=== PATIENT | male | born 1980 | race Caucasian/White ===

== ENCOUNTER 2021-01-15 17:58 | Emergency (ER) | payer BC, SELFPAY ==
--- NOTE | ~2021-01-15 | CT_ITS ---
EXAMINATION: CT ABDOMEN AND PELVIS WITHOUT CONTRAST CLINICAL INFORMATION: Rule out renal calculi COMPARISON: None TECHNIQUE: Multidetector volumetric imaging was performed from the superior aspect of the liver through the pubic symphysis. Sagittal and coronal reformatted images were obtained on the technologist's workstation. This CT examination was performed using dose optimization techniques as appropriate, variously including the following: *Automated exposure control *Adjustment of mA and/or kV according to patient size (this includes techniques or standardized protocols for targeted exams where dose is matched to indication/reason for exam; i.e. extremities or head) *Use of iterative reconstruction technique DLP: 459 mGy-cm FINDINGS: Visualized lung bases are well aerated. The liver demonstrates normal size, contour and attenuation. A few subcentimeter hepatic hypodensities are too small to accurately characterize. The gallbladder is normal in appearance. The pancreas, spleen and adrenal glands are unremarkable. Symmetrically sized kidneys. There is mild right-sided hydroureteronephrosis secondary to a 5 mm calculus within the proximal right ureter. No other renal calculi are present within either kidney. The stomach is relatively decompressed. Normal caliber loops of small and large bowel. Mild stool burden throughout the colon. The bladder is normal in appearance. Coarse calcifications are present within a normal-sized prostate gland. No gross free pelvic fluid. No inguinal lymphadenopathy. No acute osseous abnormality. Bilateral L5 pars defects. CT/CT abdomen pelvis wo con IMPRESSION: Mild right-sided hydroureteronephrosis secondary to a 5 mm calculus within the proximal right ureter.
[2021-01-15 18:55] VITALS: BP 141/87; PULSE 65; RESP 18; TEMP 36.6; O2SAT 99; BMI 24.3
[2021-01-15 22:11] LABS: Hematocrit 44.7 % (42-52); Hemoglobin 15.2 g/dl (14.0-18.0); Mean Corpuscular Hemoglobin 29.4 pg (27.0-33.0); Mean Corpuscular Volume 86.5 fL (80-98); Mean Platelet Volume 10.9 fL (9.4-12.4); Platelet Count 239 X10*3/uL (160-400); Red Blood Count 5.17 X10*6/uL (4.60-5.80); Red Cell Distribution Width 12.2 % (11.0-16.0); White Blood Count 10.4 X10*3/uL (4.8-10.8)
[2021-01-15 22:31] LABS: Alanine Aminotransferase 11 U/L (0-40); Albumin Level 4.9 g/dL (3.5-5.0); Alkaline Phosphatase 73 U/L (39-117); Anion Gap 12 (12-20); Aspartate Amino Transferase 15 U/L (5-37); Blood Urea Nitrogen 9 mg/dL (9-16); Calcium 9.6 mg/dL (8.4-10.2); Carbon Dioxide 30 mmol/L (22-29); Chloride 100 mmol/L (96-108); Creatinine Clr Calc Pharmacy 101.1; Estimated Glomerular Filt Rate > 60; Glucose Random 97 mg/dL (60-115); Potassium 3.6 mmol/L (3.3-5.1); Sodium 138 mmol/L (135-145); Total Protein 8.1 g/dL (6.5-8.0)
[2021-01-15] MEDS: Ketorolac Tromethamine 30 MG/ML VIAL IVPUSH (22:37)
[2021-01-15] MEDS: 0.9 % Sodium Chloride 1,000 ML 999 ML IV (22:38)
[2021-01-15 22:53] LABS: Glucose Urine UA NEG (NEG); Leukocyte Esterase Urine NEG (NEG); Nitrite Urine NEG (NEG); Urine Blood 3+ (NEG); Urine Ketones 15 MG/DL (NEG); Urine Protein NEG (NEG-TRACE)
[2021-01-15 22:54] LABS: Appearance Urine HAZY; Color Urine DARK YELLOW
--- NOTE | 2021-01-15 22:59 | ED_ITS ---
HPI - General Adult General Chief complaint: Back Pain/Injury Stated complaint: flank pain Time Seen by Provider: 01/15/21 22:12 Source: patient Mode of arrival: ambulatory Limitations: no limitations History of Present Illness HPI narrative: Patient presents to the ED for flank pain for the past 2 days and blood in urine. Patient states history of kidney stones 12 years ago. Patient denies any abdominal pain, fever, or chills. Related Data Previous Rx's Medication Instructions Recorded naproxen 500 mg PO BID PRN #20 tab 01/15/21 oxycodone-acetaminophen [Percocet] 1 tab PO TID PRN 3 Days #9 tab 01/15/21 prednisone 40 mg PO DAILY #10 tab 01/15/21 tamsulosin [Flomax] 0.4 mg PO DAILY #10 cap 01/15/21 Allergies Allergy/AdvReac Type Severity Reaction Status Date / Time No Known Allergies Allergy Verified 01/15/21 18:54 Review of Systems Review of Systems: Yes all other systems are reviewed and are negative Constitutional: Constitutional: Reports as per HPI and Reports no additional constitutional complaints Eyes: Eyes: Reports as per HPI and Reports no additional eye complaints ENT: Reports system reviewed and no additional complaints, except as documented and Reports as per HPI Cardiovascular: Cardiovascular: Reports as per HPI and Reports no additional cardiovascular complaints Respiratory: Respiratory: Reports as per HPI and Reports no additional respiratory complaints Gastrointestinal: Gastrointestinal: Reports as per HPI, Reports no additional gastrointestinal complaints, Denies abdominal pain, Denies early satiety, Denies dyspepsia, Denies heartburn, Denies nausea, Denies vomiting and Denies hematemesis Genitourinary: Genitourinary: Reports no additional male genitourinary complaints and Reports as per HPI Musculoskeletal: Musculoskeletal: Reports no additional musculoskeletal complaints and Reports as per HPI Comments: Right flank pain Neurologic: Reports system reviewed and no additional complaints, except as documented and Reports as per HPI Psychiatric: Psychiatric: Reports no additional psychiatric complaints and Reports as per HPI PMF Social History Social History Smoking Status: Never smoker Use of substances other than those prescribed or required for medical reasons: No Advance Directives: No Advance Directives Information Provided: Yes Physical Exam Vital Signs: Vital Signs: Last Vital Signs Temp 97.9 F 01/15/21 18:55 Pulse 66 01/15/21 23:25 Resp 18 04/05/21 23:25 BP 141/87 H 01/15/21 23:25 Pulse Ox 99 01/15/21 23:25 Body Mass Index 24.3 Const: General: cooperative, healthy appearing, comfortable, no acute distress, well developed, alert, awake and Physically active Orientation/consciousness: patient oriented x3 HENMT: Head: Yes normal to inspection, Yes No palpable skull fracture present, Yes normocephalic and Yes atraumatic Eyes: General: appearance normal, both eyes and all related structures Neck: Neck: Yes normal visual inspection, Yes full ROM, Yes no lymphaden opathy, Yes no meningeal signs, Yes trachea midline, Yes supple and No tender Chest: Chest palpation & inspection: normal inspection of the chest and normal palpation of entire chest wall Resp: Effort & Inspection: normal respiratory effort and able to speak in complete sentences Auscultation: clear to auscultation bilaterally Cardio: Jugular venous distension: no JVD Heart sounds: S1 normal heart sound present and S2 normal heart sound present GI: Inspection: Yes normal to inspection and No abdominal wall ecchymosis Palpation (GI): Soft to palpation, nontender, no guarding and not rigid : General: Yes CVA tenderness (mild right) Back/Spine/Pelvis: Back: CVA tenderness (mild right) Skin: General skin exam: no rashes or lesions noted and elasticity normal Neuro: General: patient oriented x3, gait normal, no meningeal signs and CN's II-XI intact bilaterally Cranial nerves: Yes CN's II-XII intact bilaterally Extrem: General: Yes normal to inspection and Yes full ROM Psych: Appearance: grossly normal, well kempt and not disheveled Course Course Course Narrative: Patient will have labs, fluids, and Zofran. Patient will be sent for abdominal CT scan to evaluate for stones. Reevaluation(s) Reevaluation #1: Patient states feeling better after receiving Toradol for pain. Patient's kidney functions are normal. Urine negative for UTI. CT scan shows 5 mm stone. Patient with her with prednisone, Flomax, and pain meds told to follow-up with urology. Patient did not have any nausea or vomiting during ED visit Medical Decision Making MDM Narrative Medical decision making narrative: Kidney stone. Lab Data Result diagrams: 01/15/21 22:05 01/15/21 22:05 Labs: Lab Results 01/15/21 01/15/2101/15/21 Range/Units 22:05 22:05 22:31 WBC 10.4 (4.8-10.8) X10*3/uL RBC 5.17 (4.60-5.80) X10*6/uL Hgb 15.2 (14.0-18.0) g/dl Hct 44.7 (42-52) % MCV 86.5 (80-98) fL MCH 29.4 (27.0-33.0) pg MCHC 34.0 (31.0-36.0) g/dl RDW 12.2 (11.0-16.0) % Plt Count 239 (160-400) X10*3/uL MPV 10.9 (9.4-12.4) fL Absolute Nucleated RBC 0.000 (0.0-0.012) X10*3/uL Nucleated RBC % (auto) 0.0 (0.0-0.2) /100WBC Sodium 138 (135-145) mmol/L Potassium 3.6 (3.3-5.1) mmol/L Chloride 100 (96-108) mmol/L Carbon Dioxide 30 H (22-29) mmol/L Anion Gap 12 (12-20) BUN 9 (9-16) mg/dL Creatinine 0.99 (0.5-1.4) mg/dL Estim Creat Clear Calc 101.1 Estimated GFR > 60 Random Glucose 97 (60-115) mg/dL Calcium 9.6 (8.4-10.2) mg/dL Total Bilirubin 1.0 (0.0-1.0) mg/dL AST 15 (5-37) U/L ALT 11 (0-40) U/L Alkaline Phosphatase 73 (39-117) U/L Total Protein 8.1 H (6.5-8.0) g/dL Albumin 4.9 (3.5-5.0) g/dL Urine Color DARK YELLOW Urine Appearance HAZY Urine pH 7.0 (5.0-8.0) Ur Specific [place] 1.020 (1.005-1.025) Urine Protein NEG (NEG-TRACE) MG/DL Urine Glucose (UA) NEG (NEG) MG/DL Urine Ketones 15 (NEG) MG/DL Urine Blood 3+ H (NEG) Urine Nitrite NEG (NEG) Ur Leukocyte Esterase NEG (NEG) Urine RBC 15-29 H (0) /HPF Urine WBC 0-2 (0-4) /HPF Ur Squamous Epith Cells NONE /LPF Amorphous Sediment 2+ /LPF Urine Bacteria NONE /LPF Urine Mucus 2+ /LPF Discharge Plan Discharge Clinical Impression: Calculi, ureter Patient Disposition: Home, Self-Care Instructions: Ureteral Stones (ED) Additional Instructions: Return to the ED for worsening flank pain, abdominal pain, nausea, vomiting, fe shabnam, chills, inability tolerate solid food/liquid, gross hematuria, or any other concerning symptoms. Prescriptions: New oxycodone-acetaminophen [Percocet] 5-325 mg tablet 1 tab PO TID PRN (Reason: pain (scale score 7-10)) 3 Days Qty: 9 RF: 0 tamsulosin [Flomax] 0.4 mg capsule 0.4 mg PO DAILY Qty: 10 RF: 0 prednisone 20 mg tablet 40 mg PO DAILY Qty: 10 RF: 0 naproxen 500 mg tablet 500 mg PO BID PRN (Reason: pain) Qty: 20 RF: 0 Referrals: Sherif Barahona MD [Physician] - 2 days (Ureter stone with mild hydronephrosis 5 mm) Stand Alone Forms: Work/School Release Interventions: ED Discharge Assessment Last Done: 01/16/21 00:11 Discharge Date/Time: 01/16/21 00:12 Print Language: Armenian
[2021-01-15 23:19] LABS: Amorphous Sediment Urine 2+ /LPF; Mucus Urine 2+ /LPF; WBC Urine 0-2 /HPF (0-4)
[2021-01-15 23:25] VITALS: BP 141/87; PULSE 66; RESP 18; O2SAT 99
[2021-01-15] MEDS: Tamsulosin HCL 0.4 MG CAPSULE PO (23:35)
== END 2021-01-16 00:12 | disposition home or self-care (01) ==
PROVIDERS: Physician Assistant; Emergency Provider Emergency Medicine Emergency Medical Services
DX: N20.1 Calculus of ureter (principal); R10.9 Unspecified abdominal pain; Z79.899 Other long term (current) drug therapy
CPT/HCPCS: 36415; 74176; 80053; 81001; 85027; 96365; 96375; 99284; J1885

== ENCOUNTER → 2021-01-24 14:16 | Outpatient (BNVA) | payer BC, SELFPAY | PROVIDERS: PCP Internal Medicine; Visit Provider Urology ==

== ENCOUNTER → 2021-03-13 08:51 | Outpatient (BNVA) | payer BC, SELFPAY | PROVIDERS: PCP Internal Medicine; Visit Provider Urology ==

== ENCOUNTER 2021-04-02 14:59 | Day surgery (SDC) | payer BC, SELFPAY ==
[2021-03-27 11:34] VITALS: BMI 24.3
--- NOTE | 2021-03-29 14:19 | HO.ANESPROP2 ---
Documented by User: Arianne Diaz 03/29/21 14:20 HPI - Anesthesia Eval Consult details Narrative: 40yo M for Right Cystoscopy, Ureteroroscopy, Retro, Laser PMFSH Active Problems Active Problems: All Active Problems (Updated 01/24/21 @ 14:36 by Sherif Barahona MD) Nephrolithiasis (Acute) Past Medical History Medical History Nephrolithiasis Family History Family History Father Colon cancer Mother Kidney stone Surgical History Surgical History Hx of lithotripsy Social History Social History Advance Directives: No Advance Directives Information Provided: Yes Meds Allergies Allergy/AdvReac Type Severity Reaction Status Date / Time No Known Allergies Allergy Verified 03/13/21 08:51 Home Medications Medication Instructions Recorded Confirmed Last Taken Type tramadol 50 mg tablet 50 mg PO DAILY 01/24/21 Unknown History Exam Exam Date and Time: March 29, 2021 1419 Height,Weight and Vital Signs: Height 5 ft 9 in Weight 74.843 kg Pertinent Lab Results Pertinent Lab Results: Laboratory Tests 01/15/21 01/15/21 22:05 22:05 WBC 10.4 Hgb 15.2 Hct 44.7 Plt Count 239 Sodium 138 Potassium 3.6 Chloride 100 Carbon Dioxide 30 H BUN 9 Creatinine 0.99 Assessment and Plan Assessment Anesthesia Assessment: Chart Reviewed Documented by User: Rufina Levine 04/02/21 19:38 PMFSH Past Medical History Medical History Nephrolithiasis Family History Family History Father Colon cancer Mother Kidney stone Surgical History Surgical History Hx of lithotripsy Social History Social History Advance Directives: No Advance Directives Information Provided: Yes Meds Allergies Allergy/AdvReac Type Severity Reaction Status Date / Time No Known Allergies Allergy Verified 03/13/21 08:51 Home Medications Medication Instructions Recorded Confirmed Last Taken Type tramadol 50 mg tablet 50 mg PO DAILY 01/24/21 Unknown History Exam Airway Mallampati Class: II TM Dist: >3cm Neck ROM: Full
--- NOTE | ~2021-04-02 | FL_ITS ---
EXAMINATION: XR FLUOROSCOPY WITH IMAGES CLINICAL INFORMATION: Kidney stones. COMPARISON: None. TECHNIQUE: Fluoroscopy performed by Dr. Sherif Barahona. Fluoroscopy time: 120.1 second DOSE: 24.4 mGycm2 Images: 1 FL/FL guidance in OR FINDINGS/IMPRESSION: Single image reveals internal ureteral stent likely in the kidney pelvis. Fluoroscopy was provided to Dr. Jun Gorman during the procedure.
[2021-04-02 15:33] VITALS: BP 117/79; PULSE 72; RESP 20; TEMP 37.7; O2SAT 98
[2021-04-02] MEDS: levoFLOXacin 500 MG TABLET PO (15:45)
[2021-04-02] MEDS: Lactated Ringers 1,000 ML 100 ML IVCONT (15:45)
--- NOTE | 2021-04-02 19:29 | MHC.SHP ---
Pre-Procedural Eval Section A The patient is an INPATIENT: No Changes since office visit: No Cold of Flu in the past 2 weeks, No New Medical Problems, No Changes in Medication and No Patient answered all questions The History & Physical has been completed within 30 days and I have reviewed it.: Yes Section B Chief Complaint: calculus of kidney Allergies: Allergies Allergy/AdvReac Type Severity Reaction Status Date / Time No Known Allergies Allergy Verified 03/13/21 08:51 Plan Diagnosis/Plan: Unchanged (Right retrograde, ureteroscopy laser lithotripsy stent placement) I have reviewed the history and physical and performed a pertinent physical examination on my patient. No changes have occurred unless specified.
--- NOTE | 2021-04-02 20:04 | HO.ANESPROP2 ---
[facility] Active Problems Active Problems: All Active Problems (Updated 03/29/21 @ 14:19 by Arianne Diaz) Nephrolithiasis (Acute) Past Medical History Medical History Nephrolithiasis Family History Family History Father Colon cancer Mother Kidney stone Surgical History Surgical History Hx of lithotripsy Social History Social History Advance Directives: No Advance Directives Information Provided: Yes Meds Allergies Allergy/AdvReac Type Severity Reaction Status Date / Time No Known Allergies Allergy Verified 03/13/21 08:51 Active Medications: Current Medications Generic Name Dose Route Start Last Admin Trade Name Freq PRN Reason Stop Dose Admin Fentanyl 50 mcg 04/02/21 19:38 Fentanyl Citrate/Pf 100 Mcg/2 Ml Vial IVPUSH Q5M PRN Pain, Severe (Pain Scale 7-10) Lactated Ringer's 1,000 mls @ 100 mls/hr 04/02/21 15:45 04/02/21 15:45 Lr IVCONT 100 mls/hr .Q10H REMI Administration Ondansetron HCl 4 mg 04/02/21 19:38 Ondansetron Hcl 4 Mg/2 Ml Vial IVPUSH ONCE PRN Nausea and Vomiting Oxycodone HCl 10 mg 04/02/21 19:38 Oxycodone Hcl Immed Release 5 Mg Tablet PO ONCE PRN Pain, Severe (Pain Scale 7-10) Home Medications Medication Instructions Recorded Confirmed Last Taken Type tramadol 50 mg tablet 50 mg PO DAILY 01/24/21 Unknown History Exam Exam Date and Time: April 02, 20212003 Height,Weight and Vital Signs: Height 5 ft 9 in Weight 74.843 kg Last Vital Signs Temp 99.8 F 04/02/21 15:33 Pulse 72 04/02/21 15:33 Resp 20 04/02/21 15:33 BP 117/79 04/02/21 15:33 Pulse Ox 98 04/02/21 15:33 Airway Mallampati Class: II TM Dist: >3cm Neck ROM: Full
--- NOTE | 2021-04-02 20:36 | W.PM.OPN ---
Operative Note Operative Note Date of Service: 04/02/21 Narrative: PreOperative Diagnosis: Right distal ureteric stone Post Operative Diagnosis: Right distal ureteric stone Procedure: - right cystoscopy, retrograde - right dilatation of ureteric orifice under fluoroscopy - right ureteroscopy, laser lithotripsy - stent placement Surgeon: Dr Sherif Barahona Anesthesia: General Indications for procedure: [] Procedure: After informed consent was verified patient was brought to the operating placed in supine position. Anesthesia was administered per protocol. Patient was placed in modified dorsal lithotomy position and prepped and draped in a sterile fashion. Safety pause time-out and side of surgery confirmed. Antibiotics confirmed. Twenty-two [place]ian cystoscope was placed per urethra. Normal looking bladder. Right ureteric orifice cannulated and retrograde examination performed. Filling defects seen in the mid right ureter with mild hydroureteronephrosis. Sensor guidewire placed. Kula dilator used to dilate ureteric orifice under fluoroscopy. Initial placement flexible ureteral scope only because midportion looked too far away for rigid scope. We did encounter the stone however there was a tight turn in difficulty getting the angle with the flexible scope. The wire was placed back. The scope removed. A semi rigid scope was placed. Stone was encountered. Using a holmium laser fiber the stone was broken into small pieces. Because of the difficulty with maintaining a straight scope decision was made not to try to basket out the fragments but instead to leave a stent. The scope was removed. The cystoscope was back loaded through the wire and a 6 [place] by 24 cm double-J stent was placed without difficulty. The bladder was emptied. He tolerated the procedure well was extubated in operating room transferred in stable condition to the recovery area. Pathology: None Drains: 6 [place] by 24 cm stent
[2021-04-02 20:37] VITALS: BP 145/90; PULSE 73; RESP 16; TEMP 37.3; O2SAT 100
[2021-04-02 20:42] VITALS: BP 145/103; PULSE 66; RESP 16; O2SAT 98
[2021-04-02 20:47] VITALS: BP 141/89; PULSE 66; RESP 16; O2SAT 97
[2021-04-02] MEDS: Phenazopyridine HCL 100 MG TABLET PO (20:51)
[2021-04-02 20:52] VITALS: BP 143/93; PULSE 77; RESP 16; O2SAT 99
--- NOTE | 2021-04-02 21:01 | PC.NURSE ---
PATIENT CONVERSING. NO COMPLAINTS OF PAIN. REPORTS URGE TO VOID. OOB AMBULATING TO BATHROOM STEADY GAIT.
[2021-04-02 21:08] VITALS: BP 140/93; PULSE 70; RESP 16; TEMP 36.6; O2SAT 99
== END 2021-04-02 21:32 | disposition home or self-care (01) ==
PROVIDERS: Visit Provider Urology
PROC: (CPT 52356; principal; 2021-04-02 17:20)
DX: N20.1 Calculus of ureter (principal); Z87.442 Personal history of urinary calculi; Z79.899 Other long term (current) drug therapy; Z87.891 Personal history of nicotine dependence
CPT/HCPCS: 52356; C1769; C2617; J1100; J1885; J2250; J2405; J3010; Q9967

== ENCOUNTER → 2021-04-13 10:52 | Outpatient (BNVA) | payer BC, SELFPAY | PROVIDERS: Visit Provider Urology | DX: N20.0 Calculus of kidney (principal) | CPT/HCPCS: 52310 ==

== ENCOUNTER 2021-04-27 11:26 | Outpatient (REF) | payer BC, SELFPAY ==
--- NOTE | ~2021-04-27 | US_ITS ---
EXAMINATION: US RETROPERITONEAL LIMITED (RENAL ONLY) CLINICAL INFORMATION: Calculus kidney. COMPARISON: CT abdomen and pelvis 01/15/2021. TECHNIQUE: Real-time imaging of the kidneys. FINDINGS: RIGHT KIDNEY: 10.2 x 6.1 x 6.6 cm (SAG x AP x TRV). The kidney is normal in size, contour, and echogenicity. Renal cortical thickness is normal. No calculi or focal parenchymal lesions. No hydronephrosis. LEFT KIDNEY: 10.8 x 5.2 x 5.0 cm (SAG x AP x TRV). The kidney is normal in size, contour, and echogenicity. Renal cortical thickness is normal. No calculi or focal parenchymal lesions. No hydronephrosis. US/US renal BI IMPRESSION: No stone seen. The previously identified right hydronephrosis on January [address] scan has resolved..
== END 2021-04-27 11:27 | disposition home or self-care (01) ==
LOC: HO.HMGCX 11:26
PROVIDERS: PCP Internal Medicine; Visit Provider Urology
DX: N20.0 Calculus of kidney (principal)
CPT/HCPCS: 76775

== ENCOUNTER → 2021-05-25 11:41 | Outpatient (BNVA) | payer BC, SELFPAY | PROVIDERS: PCP Internal Medicine; Visit Provider Urology ==

== ENCOUNTER 2021-10-24 13:50 | Outpatient (REF) | payer BC, SELFPAY ==
--- NOTE | ~2021-10-24 | US_ITS ---
EXAMINATION: US RETROPERITONEAL LIMITED (RENAL ONLY) CLINICAL INFORMATION: Calculus of kidney. COMPARISON: None TECHNIQUE: Routine retroperitoneal ultrasound imaging was performed. FINDINGS: RIGHT KIDNEY: 10.1 x 5.8 x 6.5 cm (SAG x AP x TRV). The kidney is normal in size, contour, and echogenicity. Renal cortical thickness is normal. No calculi or focal parenchymal lesions. No hydronephrosis. LEFT KIDNEY: 11.0 x 5.2 x 4.9 cm (SAG x AP x TRV). The kidney is normal in size, contour, and echogenicity. Renal cortical thickness is normal. No calculi or focal parenchymal lesions. No hydronephrosis. US/US renal BI IMPRESSION: Unremarkable bilateral renal ultrasound.
== END 2021-10-24 13:51 | disposition home or self-care (01) ==
LOC: HO.HMGCX 13:50
PROVIDERS: PCP Internal Medicine; Visit Provider Urology
DX: N20.0 Calculus of kidney (principal)
CPT/HCPCS: 76775

== ENCOUNTER → 2021-11-23 10:52 | Outpatient (BNVA) | payer BC, SELFPAY | PROVIDERS: PCP Internal Medicine; Visit Provider Urology ==

== ENCOUNTER 2022-11-06 09:05 | Outpatient (REF) | payer BC, SELFPAY ==
--- NOTE | ~2022-11-06 | US_ITS ---
EXAMINATION: US RETROPERITONEAL LIMITED (RENAL ONLY) CLINICAL INFORMATION: Calculus of kidney. COMPARISON: Renal ultrasound 10/24/2021 and 04/27/2021. CT abdomen and pelvis 01/15/2021. TECHNIQUE: Real-time imaging of the kidneys. FINDINGS: RIGHT KIDNEY: 10.5 x 6.3 x 5.8 cm (SAG x AP x TRV). The kidney is normal in size, contour, and echogenicity. Renal cortical thickness is normal. No focal parenchymal lesions or hydronephrosis. There is a 0.4 cm nonobstructing calculus in the midpole. LEFT KIDNEY: 10.5 x 5.5 x 5.2 cm (SAG x AP x TRV). The kidney is normal in size, contour, and echogenicity. Renal cortical thickness is normal. No calculi or focal parenchymal lesions. No hydronephrosis. US/US renal BI IMPRESSION: Nonobstructive 0.4 cm calculus in the midpole of the right kidney.
== END 2022-11-06 09:06 | disposition home or self-care (01) ==
LOC: HO.HMGCX 09:05
PROVIDERS: PCP Internal Medicine; Visit Provider Urology
DX: N20.0 Calculus of kidney (principal)
CPT/HCPCS: 76775

== ENCOUNTER → 2022-11-26 11:40 | Outpatient (BNVA) | payer BC, SELFPAY | PROVIDERS: PCP Internal Medicine; Visit Provider Urology | DX: Z13.89 Encounter for screening for other disorder (principal) ==

== ENCOUNTER 2023-05-13 11:18 | Outpatient (REF) | payer BC, SELFPAY ==
--- NOTE | ~2023-05-13 | US_ITS ---
EXAMINATION: US RETROPERITONEAL LIMITED (RENAL ONLY) CLINICAL INFORMATION: Calculus of kidney. COMPARISON: Ultrasound retroperitoneal limited (renal only) 11/06/2022 and 10/24/2021. TECHNIQUE: Real-time imaging of the kidneys. FINDINGS: RIGHT KIDNEY: 10.4 x 5.3 x 6.4 cm (SAG x AP x TRV). The kidney is normal in size, contour, and echogenicity. Renal cortical thickness is normal. No focal parenchymal lesions or hydronephrosis. 3 mm calculus in the mid kidney. 3 mm calculus in the lower kidney. LEFT KIDNEY: 11.3 x 5.6 x 5.6 cm (SAG x AP x TRV). The kidney is normal in size, contour, and echogenicity. Renal cortical thickness is normal. No calculi or focal parenchymal lesions. No hydronephrosis. US/US renal BI IMPRESSION: Nonobstructing right renal calculi. No hydronephrosis.
== END 2023-05-13 11:19 | disposition home or self-care (01) ==
LOC: HO.HMGCX 11:18
PROVIDERS: PCP Internal Medicine; Visit Provider Urology
DX: N20.0 Calculus of kidney (principal)
CPT/HCPCS: 76775

== ENCOUNTER 2023-05-29 11:47 | Outpatient (AMB) | payer BC, SELFPAY ==
--- NOTE | 2023-05-29 12:00 | A.OFFVIS_ITS ---
Intake Intake Visit Reasons: 6m follow up/US(set) Intake Note: Patient is present for Follow Up Ultrasound Urology Med: None Antibiotic Allergy: None Blood Thinner: None Pharmacy: [facility] Allergies No Known Allergies Allergy (Verified 05/29/23 12:01) HPI HPI Comments History of Present Illness Details Alicia is a very pleasant male. He is a patient of Dr. Carpenter. 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[employer] Nephrolithiasis Seen in emergency room January 2021 for right flank pain Prior stone history - early 20s had stones Stone intervention - 04/02 right retrograde ureteroscopy laser lithotripsy Imaging - CT 01/31 right 5 mm upper ureteric stone - 06/02 renal ultrasound no stone seen - 12/04 renal ultrasound no stone seen - 12/05 renal US right 4mm - 06/04 renal ultrasound right 3 mm stone Treatment - encourage fluids, imaging surveillance PFSH Medical History Nephrolithiasis Surgical History Hx of lithotripsy Family History Father Colon cancer Mother Kidney stone Review of Systems Const Denies chills and Denies fever(s) Card Reports no additional complaints and Denies syncope Resp Denies cough GI Denies abdominal pain and Denies heartburn Reports as per HPI and Denies change in libido Neuro Denies syncope Psych Denies change in libido Endo Denies change in libido Physical Exam Const General: cooperative, healthy appearing, comfortable and no acute distress Orientation/consciousness: patient oriented x3 HEENT Face and sinus: Yes normal facial exam Mouth: moist mucous membranes Neck Neck: Yes normal visual inspection, Yes full ROM and Yes trachea midline Chest Chest palpation & inspection: normal inspection of the chest Resp Effort & Inspection: normal respiratory effort, able to speak in complete sentences and no respiratory distress GI Inspection: Yes normal to inspection Back/Spine/Pelvis Cervical Spine: normal cervical lordosis Thoracic/Lumbar Spine: thoracic and lumbar spine normal to inspection Skin General skin exam: no rashes or lesions noted Neuro General: patient oriented x3, gait normal, tone normal and moves all extremities Extrem General: Yes normal to inspection and Yes capillary refill normal Assessment & Plan Assessment & Plan (1) Nephrolithiasis: Comment: Ureteroscopy March 2021 Code(s): N20.0 - Calculus of kidney Plan 1 year follow-up imaging Orders: Orders US renal BI 364 Days N20.0 - Calculus of kidney Patient Instructions: Imaging studies, laboratory and physical exam results were discussed and reviewed in detail. No major barriers to patient understanding were identified. An opportunity to ask questions regarding the treatment plan was provided. All questions were answered. The patient expressed understanding and agreement with the above treatment plan. The patient is aware they should contact our office by phone for worsening of their current condition or the appearance of new urologic symptoms. Compliance is encouraged with any medications and followup testing that is ordered. It is a privilege to participate in the urologic care of your patient. If you have any questions or concerns regarding treatment for the above conditions, or other urologic issues, please do not hesitate to contact me. The office telephone contact is [phone]. This note is constructed using voice recognition software. While every effort has been made to ensure accuracy hydroelectric component machinist errors may have been included. Yours sincerely, Dr Sherif Barahona MD, [facility] - Urology Providers of Expert, Compassionate Care for the Genitourinary System Coding Level of Care Code Est Pt Level 3 (32505) Diagnoses Nephrolithiasis N20.0
== END 2023-05-29 12:26 | disposition home or self-care (01) ==
PROVIDERS: PCP Internal Medicine; Visit Provider Urology
DX: N20.0 Calculus of kidney (principal)
CPT/HCPCS: 99213

== ENCOUNTER → 2023-05-29 11:47 | Outpatient (BNVA) | payer BC, SELFPAY | PROVIDERS: Visit Provider Urology ==

== ENCOUNTER 2024-05-13 11:24 | Outpatient (REF) | payer BC, SELFPAY ==
--- NOTE | ~2024-05-13 | US_ITS ---
EXAMINATION: US RETROPERITONEAL LIMITED (RENAL ONLY) CLINICAL INFORMATION: Calculus of kidney. COMPARISON: Renal ultrasound 05/13/2023 and 11/06/2022. CT abdomen and pelvis 01/15/2021. TECHNIQUE: Real-time imaging of the kidneys. Limited visualization due to bowel gas. FINDINGS: RIGHT KIDNEY: 10.6 x 6.1 x 6.6 cm (SAG x AP x TRV). 4 mm mid pole and 3 mm lower pole calculi. No hydronephrosis. Renal cortical thickness is normal. Limited visualization. LEFT KIDNEY: 10.6 x 5.2 x 5.2 cm (SAG x AP x TRV). No hydronephrosis. No renal calculi. Renal cortical thickness is normal. Limited visualization. . US/US renal BI IMPRESSION: Right renal calculi. No hydronephrosis.
== END 2024-05-13 11:25 | disposition home or self-care (01) ==
LOC: HO.HMGCX 11:24
PROVIDERS: PCP Internal Medicine; Visit Provider Urology
DX: N20.0 Calculus of kidney (principal)
CPT/HCPCS: 76775

== ENCOUNTER 2024-05-27 11:43 | Outpatient (AMB) | payer BC, SELFPAY ==
--- NOTE | 2024-05-27 11:51 | MHC.OFFVIS ---
Intake Visit Reasons: 1Y Follow Up-Ultrasound(set) Intake Note: Patient is present for Ultrasound follow up Hospice Nurse Practitioner Required: No Allergies No Known Allergies Allergy (Verified 05/27/24 11:52) Medication List - Last Reconciled 05/27/24 by Sherif Barahona MD pyridoxine (vitamin B6) 50 mg PO DAILY 90 days HPI Comments Details: Alicia is a very pleasant male. He is a patient of Dr. Carpenter. 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[employer] Nephrolithiasis Seen in emergency room January 2021 for right flank pain Prior stone history - early 20s had stones Stone intervention - 04/02 right retrograde ureteroscopy laser lithotripsy Imaging - CT 01/31 right 5 mm upper ureteric stone - 06/02 renal ultrasound no stone seen - 12/04 renal ultrasound no stone seen - 12/05 renal US right 4mm - 06/04 renal ultrasound right 3 mm stone - 06/05 renal ultrasound 4 mm right small stone Treatment - encourage fluids, imaging surveillance PFSH Medical History Nephrolithiasis Surgical History Hx of lithotripsy Family History Father Colon cancer Mother Kidney stone Social History Comment: pt reports improvement in pain post pain med Review of Systems Const Denies chills and Denies fever(s) Card Reports no additional complaints and Denies syncope Resp Denies cough GI Denies abdominal pain and Denies heartburn Reports as per HPI and Denies change in libido Neuro Denies syncope Psych Denies change in libido Endo Denies change in libido Physical Exam Const General: cooperative, healthy appearing, comfortable and no acute distress Orientation/consciousness: patient oriented x3 HEENT Face and sinus: Yes normal facial exam Mouth: moist mucous membranes Neck Neck: Yes normal visual inspection, Yes full ROM and Yes trachea midline Chest Chest palpation & inspection: normal inspection of the chest Resp Effort & Inspection: normal respiratory effort, able to speak in complete sentences and no respiratory distress GI Inspection: Yes normal to inspection Back/Spine/Pelvis Cervical Spine: normal cervical lordosis Thoracic/Lumbar Spine: thoracic and lumbar spine normal to inspection Skin General skin exam: no rashes or lesions noted Neuro General: patient oriented x3, gait normal, tone normal and moves all extremities Extrem General: Yes normal to inspection and Yes capillary refill normal Assessment & Plan Assessment & Plan (1) Nephrolithiasis: Comment: Ureteroscopy March 2021 Code(s): N20.0 - Calculus of kidney Category: Medical Plan Continue vitamin B6 Twelve month follow-up surveillance imaging Orders: Orders US renal BI 12 Months N20.0 - Calculus of kidney Medications: Refilled pyridoxine (vitamin B6) 50 mg PO DAILY 90 tabs 3RF 90 days N20.0 - Calculus of kidney Patient Instructions: Imaging studies, laboratory and physical exam results were discussed and reviewed in detail. No major barriers to patient understanding were identified. An opportunity to ask questions regarding the treatment plan was provided. All questions were answered. The patient expressed understanding and agreement with the above treatment plan. The patient is aware they should contact our office by phone for worsening of their current condition or the appearance of new urologic symptoms. Compliance is encouraged with any medications and followup testing that is ordered. It is a privilege to participate in the urologic care of your patient. If you have any questions or concerns regarding treatment for the above conditions, or other urologic issues, please do not hesitate to contact me. The office telephone contact is [phone]. This note is constructed using voice recognition software. While every effort has been made to ensure accuracy loan operations specialist errors may have been included. Yours sincerely, Dr Sherif Barahona MD, ANGY [facility] - Urology Providers of Expert, Compassionate Care for the Genitourinary System Coding Level of Care Code Est Pt Level 4 (47637) Diagnoses Nephrolithiasis N20.0
== END 2024-05-27 12:23 | disposition home or self-care (01) ==
PROVIDERS: PCP Internal Medicine; Referring Provider Internal Medicine; Visit Provider Urology
DX: N20.0 Calculus of kidney (principal)
CPT/HCPCS: 99214

== ENCOUNTER → 2024-05-27 11:43 | Outpatient (BNVA) | payer BC, SELFPAY | PROVIDERS: PCP Internal Medicine; Visit Provider Urology ==

== ENCOUNTER 2024-08-27 15:36 | Outpatient (REF) | payer BC, SELFPAY ==
--- NOTE | ~2024-08-27 | XR_ITS ---
EXAMINATION: XR ABDOMEN KUB CLINICAL INDICATION: Renal calculus. COMPARISON: Renal ultrasound dated 05/13/2024; CT abdomen and pelvis dated 01/15/2021. TECHNIQUE: 2 AP views of the abdomen and pelvis are submitted. FINDINGS: The bowel gas pattern is normal with no evidence of ileus or obstruction. There is a mild to moderate stool burden. No unusual soft tissue calcifications are noted. The bones are unremarkable. XR/XR KUB IMPRESSION: Unremarkable examination. No definite urinary calculus is appreciated, with imaging significantly limited by overlapping bowel contents. Electronically signed by: Dwight Pedroza MD 09/01/2024 11:27 PM [facility]
== END 2024-08-27 15:37 | disposition home or self-care (01) ==
LOC: HO.HMGCX 15:36
PROVIDERS: PCP Internal Medicine; Visit Provider Urology
DX: N20.0 Calculus of kidney (principal)
CPT/HCPCS: 74018

== ENCOUNTER 2024-09-23 12:50 | Outpatient (AMB) | payer BC, SELFPAY ==
--- NOTE | 2024-09-23 12:55 | A.OFFVIS_ITS ---
Intake Visit Reasons: kidney stone follow up Intake Note: Patient is present for KIDNEY STONE F/U Urology Medication:VITAMIN B6 Antibiotic Allergy:NONE Blood Thinner:NONE Bicycle Taxi Driver Required: No Allergies No Known Allergies Allergy (Verified 09/23/24 12:58) HPI Comments Details: Alicia is a very pleasant male. He is a patient of Dr. Carpenter. he seen for the following urologic conditions - nephrolithiasis Recent episode of symptoms No definitive stone seen on repeat KUB Thinks stone may have passed on the left side. 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 for right flank pain Prior stone history - early 20s had stones Stone intervention - 04/02 right retrograde ureteroscopy laser lithotripsy Imaging - CT 01/31 right 5 mm upper ureteric stone - 06/02 renal ultrasound no stone seen - 12/04 renal ultrasound no stone seen - 12/05 renal US right 4mm - 06/04 renal ultrasound right 3 mm stone - 06/05 renal ultrasound 4 mm right small stone Treatment - encourage fluids, imaging surveillance PFSH Medical History Nephrolithiasis Surgical History Hx of lithotripsy Family History Father Colon cancer Mother Kidney stone Social History Comment: pt reports improvement in pain post pain med Review of Systems Const Denies chills and Denies fever(s) Card Reports no additional complaints and Denies syncope Resp Denies cough GI Denies abdominal pain and Denies heartburn Reports as per HPI and Denies change in libido Neuro Denies syncope Psych Denies change in libido Endo Denies change in libido Physical Exam Const General: cooperative, healthy appearing, comfortable and no acute distress Orientation/consciousness: patient oriented x3 HEENT Face and sinus: Yes normal facial exam Mouth: moist mucous membranes Neck Neck: Yes normal visual inspection, Yes full ROM and Yes trachea midline Chest Chest palpation & inspection: normal inspection of the chest Resp Effort & Inspection: normal respiratory effort, able to speak in complete sentences and no respiratory distress GI Inspection: Yes normal to inspection Back/Spine/Pelvis Cervical Spine: normal cervical lordosis Thoracic/Lumbar Spine: thoracic and lumbar spine normal to inspection Skin General skin exam: no rashes or lesions noted Neuro General: patient oriented x3, gait normal, tone normal and moves all extremities Extrem General: Yes normal to inspection and Yes capillary refill normal Assessment & Plan Assessment & Plan (1) Nephrolithiasis: Comment: Ureteroscopy March 2021 Code(s): N20.0 - Calculus of kidney Category: Medical Plan Six-month follow-up Orders: Orders US renal BI 6 Months N20.0 - Calculus of kidney Patient Instructions: Imaging studies, laboratory and physical exam results were discussed and reviewed in detail. No major barriers to patient understanding were identified. An opportunity to ask questions regarding the treatment plan was provided. All questions were answered. The patient expressed understanding and agreement with the above treatment plan. The patient is aware they should contact our office by phone for worsening of their current condition or the appearance of new urologic symptoms. Compliance is encouraged with any medications and followup testing that is ordered. It is a privilege to participate in the urologic care of your patient. If you have any questions or concerns regarding treatment for the above conditions, or other urologic issues, please do not hesitate to contact me. The office telephone contact is [phone]. This note is constructed using voice recognition software. While every effort has been made to ensure accuracy sales and service officer errors may have been included. Yours sincerely, Dr Sherif Barahona MD, ANGY [facility] - Urology Providers of Expert, Compassionate Care for the Genitourinary System Coding Level of Care Code Est Pt Level 3 (90849) Diagnoses Nephrolithiasis N20.0
== END 2024-09-23 13:25 | disposition home or self-care (01) ==
PROVIDERS: PCP Internal Medicine; Visit Provider Urology
DX: N20.0 Calculus of kidney (principal)
CPT/HCPCS: 99213

== ENCOUNTER 2024-10-15 15:38 | Outpatient (REF) | payer BC, SELFPAY ==
--- NOTE | ~2024-10-15 | US_ITS ---
CLINICAL HISTORY: R10.9 - Unspecified abdominal pain US Renal Comparison: None Findings: Right kidney normal size and echotexture, 10.3 cm length. Left kidney normal size and echotexture, 10.8 cm length. No collecting system dilatation of either kidney. Normal color Doppler. There are right renal parenchymal calculi measuring 0.3 x 0.3 x 0.3 cm and 0.4 x 0.3 x 0.3 cm. IMPRESSION: 1. No acute findings. This document has been electronically signed by: Trino Holliday MD on 10/16/2024 08:34:13
== END 2024-10-15 15:39 | disposition home or self-care (01) ==
LOC: HO.HMGCX 15:38
PROVIDERS: PCP Internal Medicine; Visit Provider Urology
DX: R10.9 Unspecified abdominal pain (principal); N20.0 Calculus of kidney
CPT/HCPCS: 76775

== ENCOUNTER → 2024-10-15 15:43 | Outpatient (BNV) | payer BC, SELFPAY | PROVIDERS: PCP Internal Medicine; Visit Provider Specialist | DX: R10.9 Unspecified abdominal pain (principal) | CPT/HCPCS: 76775 ==

== ENCOUNTER 2025-06-06 14:37 | Outpatient (REF) | payer BC, SELFPAY ==
--- NOTE | ~2025-06-06 | US_ITS ---
EXAMINATION: US RETROPERITONEAL LIMITED (RENAL ONLY) CLINICAL INFORMATION: Calculus of kidney. COMPARISON: 10/15/2024, 05/13/2024. TECHNIQUE: Real-time imaging of the kidneys. FINDINGS: RIGHT KIDNEY: 9.7 x 6.4 x 6.6 cm (SAG x AP x TRV). The kidney is normal in size, contour, and echogenicity. Renal cortical thickness is normal. No focal parenchymal lesions. No hydronephrosis. There is a mid pole nonobstructing calculus measuring 3 x 4 x 4 mm. LEFT KIDNEY: 10.4 x 4.7 x 4.9 cm (SAG x AP x TRV). The kidney is normal in size, contour, and echogenicity. Renal cortical thickness is normal. No calculi or focal parenchymal lesions. No hydronephrosis. US/US renal BI IMPRESSION: 1. Nonobstructing left mid pole calculus measuring 4 mm. 2. Otherwise normal exam. Electronically signed by: Elbert Reed MD 06/06/2025 03:26 PM EDT
--- OUTSIDE RECORDS SUMMARY | 2025-06-06 16:20 | XMS_ITS | Clinical Summary ---
Author Organization [facility] Address [address] [place] [phone] Phone Care Team Providers Care Supply Coordinator Name Role Phone Gil Carpenter MD Primary Care Provider [phone] Allergies No known active allergies Medications acetaminophen (TYLENOL) 500 mg tablet Take 2 tablets (1,000 mg total) by mouth every 8 (eight) hours. 07/09/20 24 Active tiZANidine (ZANAFLEX) 4 mg tablet Take 1 tablet (4 mg total) by mouth every 8 (eight) hours if needed. 07/09/20 24 Active minoxidiL (ROGAINE) 2 % external solution Apply topically 1 (one) time each day. Active hydrOXYzine HCL (ATARAX) 25 mg tablet Take 1 tablet (25 mg total) by mouth every 8 (eight) hours if needed for anxiety. 30 each 05/13/20 25 025 Active hydrOXYzine HCL (ATARAX) 10 mg tablet Take 1 tablet (10 mg total) by mouth 3 (three) times a day if needed. 01/16/20 24 025 Discontinued Active Problems Problem Noted Date Diagnosed Date Kidney stone 07/25/2022 Overview (09/30/2024): 2020 right ureteral stone Encounters Date Type Department Care Team Description 05/13/2025 9:00 AM EDT Office Visit Adult Medicine [address] [phone] Gil Carpenter MD Routine physical examination (Primary Dx); Screening for diabetes mellitus; Screening, lipid; Kidney stone; BRBPR (bright red blood per rectum) from Last 3 Months Immunizations Name Administration Dates Next Due Influenza trivalent, 0.5mL, preservative free (Fluarix; FluLaval; Fluzone) ages 6mo and older (Afluria) 3 years and older 08/23/2021,08/22/2017 Influenza trivalent, with pr eservative (Fluzone; Afluria) 6mo and older 07/09/2013 Influenza, Unspecified 08/08/2022 Tdap Tetanus diptheria acell ular pertussis (Boostrix; Adacel) 7yo and older 07/09/2013 Varicella live (Varivax) 12mo and older 12/30/19,11/24/2017 Surgical History Surgery Date Site/Laterality Comments TONSILLECTOMY PROCEDURE: HISTORICAL TONSILLECTOMY COLONOSCOPY 01/19/2010 PROCEDURE: FL COLONOSCOPY FLX DX W/COLLJ SPEC WHEN PFRMD; COMMENT: normal OTHER SURGICAL HISTORY 1999 PROCEDURE: INSERT URETERAL CATHETER/STENT; COMMENT: [facility] Urology Medical History Medical History Date Comments Kidney stone 07/25/2022 DX:Kidney stone; COMMENT: 2020 right ureteral stone Family History Medical History Relation Name Comments Prostate cancer Father Relation Name Status Comments Father Social History Tobacco Use Types Packs/Day Years Used Date Smoking Tobacco: Every Day Cigarettes Smokeless Tobacco: Never Tobacco Cessation:Ready to Q uit: Not Asked; Counseling Given: Not Answered Alcohol Use Standard Drinks/Week Comments Not Currently 0.8 (1 standard drink = 0.6 oz p ure alcohol) Housing Instability Answer Date Recorde d Are you worried that in the next 2 months you may not have stable housing? No 05/13/2025 Food Access & Nutrition Answer Date Rec orded Do you have access to a vari ety of food including fruits and vegetables? Yes 05/13/2025 Access to Healthcare Answer Date Record ed Within the last 3 months, yasmin sagastume many times did you visit the emergency department for your medical care? 0 05/13/2025 Financial Risk Answer Date Recorded How hard is it for you to pa y for the very basics like food, housing, medical care, and air conditioning / heating? Not very hard 05/13/2025 Transportation Answer Date Recorded Has the lack of transportati on kept you from meetings, work, or from getting things needed for daily living? No Has the lack of transportati on kept you from medical appointments or from getting medications? No 05/13/2025 Social Isolation Answer Date Recorded How often do you feel lonely or isolated from th ose around you? Never 05/13/2025 Food Risk Answer Date Recorded Within the past 12 months we worried whether our food would run out before we got money to buy more. Never true 05/13/2025 Within the past 12 months th e food we bought just didn't last and we didn't have money to get more. Never true 05/13/2025 Dependent Care Answer Date Recorded Do you need help finding or paying for care for your loved ones. For example, child life assistant or elderly care for an older adult? No 05/13/2025 Education Answer Date Recorded Do you think completing more education or training, like finishing a GED, going to college, or learning a trade, would be helpful for you? No 05/13/2025 Employment and Income Answer Date Recor ded During the last four weeks, have you been actively looking for work? No 05/13/2025 Sex and Gender Information Value Date Recorded Sex Assigned at Not on file Legal Sex Male 1:47 PM EST Gender Identity Not on file Sexual Orientation Not on file Obstetrics History Last Filed Vital Signs Vital Sign Reading Time Taken Comments Blood Pressure 114/72 05/13/2025 9:03 AM EDT Pulse 68 05/13/2025 9:03 AM EDT Temperature 36.6 C (97.8 F) 05/13/2025 9:03 AM EDT Respiratory Rate 14 05/13/2025 9:03 AM EDT Oxygen Saturation 99% 05/13/2025 9:03 AM EDT Inhaled Oxygen Concentration - - Weight 75.8 kg (167 lb) 05/13/2025 9:03 AM EDT Height 175.3 cm (5' 9 ) 05/13/2025 9:03 AM EDT Body Mass Index 24.66 05/13/2025 9:03 AM EDT Plan of Treatment Upcoming Encounters Date Type Department Care Team (Late st Contact Info) Description 12/01/2025 1:00 PM EST Office Visit Adult Medicine [address] [place] [address] Gil Carpenter MD [address] [place] [address] Health Maintenance Due Date Last Done Comments Hepatitis B Vaccines (1 of 3 - 19+ 3-dose series) 2001 Pneumococcal Vaccine: Pediatrics (0 to 5 Years) and At-Risk Patients (6 to 49 Years) (1 of 2 - PCV) 2001 HIV Screening 09/10/2022 Hepatitis C Screening 09/10/2022 DTaP,Tdap,and Td Vaccines (2 - Td or Tdap) 07/09/2023 07/09/2013 COVID-19 Vaccine ( season) 2024 10/02/2021, 11/20/2020, 11/01/2020 Influenza Vaccine (#1) 2025 , 08/08/2022, 08/23/2021, Additional history exists Social Influencers of Health Screening 05/13/2026 05/13/2025 Cholesterol Screening (Lipid Panel) 05/13/2030 05/13/2025 Varicella Vaccines Aged Out 12/29/2017, 11/24/2017 No longer eligible based on patient's age to complete this topic Depression Screening Completed 05/13/2025 HIB Vaccines Aged Out No longer eligi ble based on patient's age to complete this topic HPV Vaccines Aged Out No longer eligi ble based on patient's age to complete this topic Hepatitis A Vaccines Aged Out No long er eligible based on patient's age to complete this topic IPV Vaccines Aged Out No longer eligi ble based on patient's age to complete this topic MMR Vaccines Aged Out No longer eligi ble based on patient's age to complete this topic Meningococcal ACWY Vaccine Aged Out N o longer eligible based on patient's age to complete this topic Meningococcal B Vaccine Aged Out No l onger eligible based on patient's age to complete this topic RSV Immunization Patients Under 20 months Aged Out No longer eligible based on patient's age to complete this topic Procedures Procedure Name Priority Date/Time Associated Diagnosis Comments CBC WITH AUTO DIFFERENTIAL Routine 05/13/2025 9:47 AM EDT Routine physical examination BRBPR (bright red blood per rectum) CBC AND DIFFERENTIAL Routine 05/13/2025 9:47 AM EDT Routine physical examination BRBPR (bright red blood per rectum) COMPREHENSIVE METABOLIC PANEL Routine 05/13/2025 9:47 AM EDT Routine physical examination Screening for diabetes mellitus LIPID PANEL WITH REFLEX TO DIRECT LDL Routine 05/13/2025 9:47 AM EDT Routine physical examination Screening, lipid from Last 3 Months Results * (ABNORMAL) Lipid panel with reflex to direct LDL (05/13/2025 9:47 AM EDT) Cholesterol 182 0 - 200 mg/dL LAB [facility] Triglycerides 97 0 - 150 mg/dL LAB CHEMISTRY METHOD [facility]/13[facility]2025 [facility] HDL 44 >=40 mg/dL LAB CHEMISTRY METHOD 05/13/2025 1:04 PM [facility] LDL Calculated 119(H) 0 - 100 mg/dL LAB CHEMISTRY METHOD 05/13/2025 1:04 PM [facility] VLDL Cholesterol Skyler 19.4 mg/dL LAB CHEMISTRY METHOD 05/13/2025 1:04 PM [facility] Non HDL Chol. (LDL+VLDL) 138 <145 mg/dL LAB CHEMISTRY METHOD 05/13/2025 1:04 PM [facility] Chol/HDL Ratio 4.1 0.0 - 4.4 LAB CHEMISTRY METHOD 05/13/2025 1:04 PM [facility] Blood Venous blood specimen / Unknown Venipuncture / Unknown 05/13/2025 9:47 AM EDT 05/13/2025 9:47 AM EDT us Gil Carpenter MD LAB BLOOD ORDERABLES Final Resu lt [facility] [address] [place] [address], * (ABNORMAL) CBC auto differential (05/13/2025 9:47 AM EDT) WBC 9.2 4.8 - 10.8 K/mcL LAB HEMETOLOGY METHOD 05/13/2025 12:21 PM EDT [facility] RBC 5.00 4.50 - 5.50 M/mcL LAB HEMETOLOGY METHOD 05/13/2025 12:21 PM [facility] Hemoglobin 14.8 13.5 - 17.5 g/dL LAB HEMETOLOGY METHOD 05/13/2025 12:21 PM [facility] Hematocrit 44.0 42.0 - 54.0 % LAB HEMETOLOGY METHOD 05/13/2025 12:21 PM [facility] MCV 88.2 79.0 - 98.0 FL LAB HEMETOLOGY METHOD 05/13/2025 12:21 PM T [facility] MCH 29.7 27.0 - 32.0 pcg LAB HEMETOLOGY METHOD 05/13/2025 12:21 PM [facility] MCHC 33.6 32.0 - 37.0 g/dL LAB HEMETOLOGY METHOD 05/13/2025 12:21 PM T [facility] RDW 12.0 11.0 - 15.0 % LAB HEMETOLOGY METHOD 05/13/2025 12:21 PM [facility] Platelets 223 130 - 400 K/mcL LAB HEMETOLOGY METHOD 05/13/2025 12:21 PM [facility] MPV 11.4(H) 7.0 - 11.0 FL LAB HEMETOLOGY METHOD 05/13/2025 12:21 PM [facility] NRBC 0.0 <1.0 % LAB HEMETOLOGY METHOD 05/13/2025 12:21 PM [facility] NRBC Absolute 0.00 <0.10 K/mcL LAB HEMETOLOGY METHOD 05/13/2025 12:[facility] Neutrophils Relative 65.0 % LAB HEMETOLOGY METHOD 05/13/2025 12:21 PM [facility] Lymphocytes Relative 21.2 % LAB HEMETOLOGY METHOD 05/13/2025 12:21 PM [facility] Monocytes Relative 7.3 % LAB HEMETOLOGY METHOD 05/13/2025 12:21 PM [facility] Eosinophils Relative 5.3 % LAB HEMETOLOGY METHOD 05/13/2025 12:21 PM [facility] Basophils Relative 0.9 % LAB HEMETOLOGY METHOD 05/13/2025 12:21 PM [facility] Immature Granulocytes Relative 0.3 % LAB HEMETOLOGY METHOD 05/13/2025 12:21 PM [facility] Neutrophils Absolute 5.96 1.50 - 7.00 K/mcL LAB HEMETOLOGY METHOD 05/13/2025 12:21 PM [facility] Lymphocytes Absolute 1.95 1.00 - 5.00 K/mcL LAB HEMETOLOGY METHOD 05/13/2025 12:21 PM [facility] Monocytes Absolute 0.67 0.20 - 1.00 K/mcL LAB HEMETOLOGY METHOD 05/13/2025 12:21 PM [facility] Eosinophils Absolute 0.49 0.00 - 0.50 K/mcL LAB HEMETOLOGY METHOD 05/13/2025 12:21 PM [facility] Basophils Absolute 0.08 0.00 - 0.20 K/mcL LAB HEMETOLOGY METHOD 05/13/2025 12:21 PM [facility] Immature Granulocytes Absolute 0.03 0.00 - 0.03 K/mcL LAB HEMETOLOGY METHOD 05/13/2025 12:21 PM [facility] Blood Venous blood specimen / Unknown Venipuncture / Unknown 05/13/2025 9:47 AM EDT 05/13/2025 9:47 AM EDT us Gil Carpenter MD LAB BLOOD ORDERABLES Final Resu lt [facility] [address] [place] [address], * Comprehensive metabolic panel (05/13/2025 9:47 AM EDT) Sodium 138 133 - 145 mmol/L LAB CHEMISTRY METHOD 05/13/2025 1:04 PM [facility] Potassium 4.2 3.5 - 5.5 mmol/L LAB CHEMISTRY METHOD 05/13/2025 1:04 PM [facility] Chloride 104 96 - 110 mmol/L LAB CHEMISTRY METHOD 05/13/2025 1:04 PM [facility] CO2 27 21 - 32 mmol/L LAB CHEMISTRY METHOD 05/13/2025 1:04 PM [facility] Anion Gap 7 3 - 11 LAB CHEMISTRY METHOD 05/13/2025 1:04 PM [facility] Glucose 94 70 - 100 mg/dL LAB CHEMISTRY METHOD 05/13/2025 1:04 PM [facility] BUN 12 5 - 25 mg/dL LAB CHEMISTRY METHOD 05/13/2025 1:04 PM [facility] Creatinine 1.18 0.70 - 1.30 mg/dL LAB CHEMISTRY METHOD 05/13/2025 1:04 PM [facility] eGFR 79 >=60 mL/min/1. 73m2 LAB CHEMISTRY METHOD 05/13/2025 1:04 PM [facility] Comment:Calculation based on the Chronic Kidney Disease Epidemiology Collaboration (CKD-EPI) equation refit without adjustment for race. BUN/Creatinine Ratio 10.2 LAB CHEMISTRY METHOD 05/13/2025 1:04 PM [facility] Calcium 9.2 8.5 - 10.5 mg/dL LAB CHEMISTRY METHOD 05/13/2025 1:04 PM [facility] AST (SGOT) 22 10 - 42 unit/L LAB CHEMISTRY METHOD 05/13/2025 1:04 PM [facility] ALT (SGPT) 25 10 - 60 unit/L LAB CHEMISTRY METHOD 05/13/2025 1:04 PM [facility] Alkaline Phosphatase 93 42 - 121 unit/L LAB CHEMISTRY METHOD 05/13/2025 1:04 PM [facility] Total Protein 7.3 6.0 - 8.0 g/dL LAB CHEMISTRY METHOD 05/13/2025 1:04 PM [facility] Albumin 4.0 3.2 - 5.0 g/dL LAB CHEMISTRY METHOD 05/13/2025 1:04 PM [facility] Total Bilirubin 0.5 0.0 - 1.4 mg/dL LAB CHEMISTRY METHOD 05/13/2025 1:04 PM [facility] Blood Venous blood specimen / Unknown Venipuncture / Unknown 05/13/2025 9:47 AM EDT 05/13/2025 9:47 AM EDT us Gil Carpenter MD LAB BLOOD ORDERABLES Final Resu lt [facility] [address] [place] [address], [place] [phone] from Last [address] [place] [address] [place] [address] Care Teams Supply Coordinator Relationship Specialty Start Date End Date Gil Carpenter MD [address] [place] [id number] PCP - General 09/20/08
--- OUTSIDE RECORDS SUMMARY | 2025-06-06 16:20 | XMS_ITS ---
Author Name [facility] Organization Unknown Care Team Organization Name Specialty Phone Email Start Date End Da te [facility] LANCE REGAN Primary Care 08/20/2022 4
== END 2025-06-06 14:38 | disposition home or self-care (01) ==
LOC: HO.HMGCX 14:37
PROVIDERS: PCP Internal Medicine; Visit Provider Urology
DX: N20.0 Calculus of kidney (principal)
CPT/HCPCS: 76775

== ENCOUNTER → 2025-06-06 14:40 | Outpatient (BNV) | payer BC, SELFPAY | PROVIDERS: PCP Internal Medicine; Visit Provider Radiology Diagnostic Radiology | DX: N20.0 Calculus of kidney (principal) | CPT/HCPCS: 76775 ==

== ENCOUNTER 2025-06-23 10:16 | Outpatient (AMB) | payer BC, SELFPAY ==
--- NOTE | 2025-06-23 10:37 | A.OFFVIS_ITS ---
Intake Visit Reasons: U/S FOLLOW UP Intake Note: patient presents today for: US follow up urology medications: vit b-6 blood thinners: none US done: 10/16/24 Watch [employer]spring [employer]er Required: No Accompanied by: Self / Same As Patient Allergies No Known Allergies Allergy (Verified 06/23/25 10:39) HPI Comments Details: Alicia is a very pleasant male. He is a patient of Dr. Carpenter. he seen for the following urologic conditions - nephrolithiasis Yearly follow-up Vitamin B6 Minimal stone burden Works managing [employer] Nephrolithiasis Seen in emergency room January 2021 for right flank pain Prior stone history - early 20s had stones Stone intervention - 04/02 right retrograde ureteroscopy laser lithotripsy Imaging - CT 01/31 right 5 mm upper ureteric stone - 06/02 renal ultrasound no stone seen - 12/04 renal ultrasound no stone seen - 12/05 renal US right 4mm - 06/04 renal ultrasound right 3 mm stone - 06/05 renal ultrasound 4 mm right small stone - 06/06 renal ultrasound right 4 mm stone Treatment - encourage fluids, imaging surveillance PFSH Medical History Nephrolithiasis Surgical History Hx of lithotripsy Family History Father Colon cancer Mother Kidney stone Social History Comment: pt reports improvement in pain post pain med Review of Systems Const Denies chills and Denies fever(s) Card Reports no additional complaints and Denies syncope Resp Denies cough GI Denies abdominal pain and Denies heartburn Reports as per HPI and Denies change in libido Neuro Denies syncope Psych Denies change in libido Endo Denies change in libido Physical Exam Const General: cooperative, healthy appearing, comfortable and no acute distress Orientation/consciousness: patient oriented x3 HEENT Face and sinus: Yes normal facial exam Mouth: moist mucous membranes Neck Neck: Yes normal visual inspection, Yes full ROM and Yes trachea midline Chest Chest palpation & inspection: normal inspection of the chest Resp Effort & Inspection: normal respiratory effort, able to speak in complete sentences and no respiratory distress GI Inspection: Yes normal to inspection Back/Spine/Pelvis Cervical Spine: normal cervical lordosis Thoracic/Lumbar Spine: thoracic and lumbar spine normal to inspection Skin General skin exam: no rashes or lesions noted Neuro General: patient oriented x3, gait normal, tone normal and moves all extremities Extrem General: Yes normal to inspection and Yes capillary refill normal Assessment & Plan Assessment & Plan (1) Nephrolithiasis: Comment: Ureteroscopy March 2021 Code(s): N20.0 - Calculus of kidney Category: Medical Plan 12 month follow-up Orders: Orders US renal BI 12 Months N20.0 - Calculus of kidney Medications: Refilled pyridoxine (vitamin B6) 50 mg PO DAILY 90 tabs 3RF 90 days N20.0 - Calculus of kidney Patient Instructions: This note is constructed using voice recognition software. While every effort has been made to ensure accuracy quality assurance inspector errors may have been included. Imaging studies, laboratory and physical exam results were discussed and reviewed in detail. No major barriers to patient understanding were identified. An opportunity to ask questions regarding the treatment plan was provided. All questions were answered. The patient expressed understanding and agreement with the above treatment plan. The patient is aware they should contact our office by phone for worsening of their current condition or the appearance of new urologic symptoms. Compliance is encouraged with any medications and followup testing that is ordered. It is a privilege to participate in the urologic care of your patient. If you have any questions or concerns regarding treatment for the above conditions, or other urologic issues, please do not hesitate to contact me. The office tele phone contact is [phone]. Sincerely, Dr Sherif Barahona MD, ANGY [facility] - Urology Compassionate Specialist Care for the Genitourinary System Coding Level of Care Code Est Pt Level 4 (92561) Complex EM visit Add On G2211 Diagnoses Nephrolithiasis N20.0
== END 2025-06-23 11:05 | disposition home or self-care (01) ==
LOC: HO.HUSH 10:17
PROVIDERS: PCP Internal Medicine; Visit Provider Urology
DX: N20.0 Calculus of kidney (principal)
CPT/HCPCS: 99214